=== PATIENT | male | born 1975 | race Two or more races ===

== ENCOUNTER 2019-01-02 11:31 | Emergency (ER) | payer MEDICAID ==
[~2019-01-02] VITALS: Ht 188 cm; Wt 84.4 kg
[2019-01-02 11:47] VITALS: BP 146/81; Ht 188 cm; Wt 84.4 kg
== END 2019-01-02 12:35 | disposition left against medical advice (07) ==
LOC: ED 11:31
DX: Z53.21 Procedure and treatment not carried out due to patient leaving prior to being seen by health care provider (principal)

== ENCOUNTER 2020-01-20 10:57 | Inpatient (IN) | payer OTHER ==
[~2020-01-20] VITALS: Ht 188 cm; Wt 105.2 kg
[2020-01-20 11:03] VITALS: Ht 188 cm; Wt 105.2 kg
--- NOTE | 2020-01-20 11:12 | NUR ---
PT BIB [facility], REPORT RECEIVED FROM MEDIC ART. PT STS THAT HE WAS EATING A TAMALE THIS MORNING AND BEGAN CHOKING ON IT. PT STS THAT WHEN HE SAT UP TO GET THE "FOOD OUT OF WIN[place]", HE FELT "PAIN THAT FEELS LIKE CONTRACTION" AND THE PAIN GOT WORSE HE TRIED HARDER TO GET THE FOOD OUT OF HIS WINDPIPE. PT STATED PAIN 4/10 WHEN HE ARRIVED WITH EMS BUT DENIES PAIN AT THIS TIME. PT ALSO DENIES N/V/D AT THIS TIME. PT STS THAT HE HAS NOT BEEN TAKING HIS BLOOD THINNER SINCE FEBRUARY BUT HAS TAKEN LASIX RECENTLY S/P TELLING HIS DR THAT HE HAS BEEN RETAINING FLUID. PER MEDIC, PT 140-170 AFIB ON SCENE AND HX CHF, HTN, AND HIGH CHOLESTEROL. PT IN [facility] RESTING RESP E/U, NAD NOTED, AAOX4, CALL LIGHT IN REACH. PT ALSO C/O "BLOOD BLISTERS" IN LOWER ABD REGION, B/L FA, AND BLE, STATING THAT "IT MAY BE FROM MY FLUID RETENTION".
--- NOTE | 2020-01-20 11:15 | NUR ---
AT BEDSIDE FOR MSE
--- NOTE | 2020-01-20 12:10 | NUR ---
INTERNSHIP CONVERTED FROM UNCONTROLLED A FIB TO SINUS TACH.
[2020-01-20 12:17] LABS: CALCIUM 8.7 mg/dL (8.5-10.1); CHLORIDE SERUM 104 mmol/L (98-107); CREATININE SERUM 1.2 mg/dL (0.7-1.3); GFR1 > 60 mL/min; GLUCOSE SERUM 114 mg/dL (74-106); POTASSIUM SERUM 3.8 mmol/L (3.5-5.1); SODIUM SERUM 138 mmol/L (136-145)
[2020-01-20 12:28] LABS: ALBUMIN 3.6 g/dL (3.4-5.0); ALKALINE PHOSPHATASE 111 U/L (46-116); ALT/SGPT 76 U/L (16-63); AST/SGOT 60 U/L (15-37); BILIRUBIN TOTAL 2.63 mg/dL (0.20-1.00); LIPASE 128 IU/L (73-393); MAGNESIUM 2.2 mg/dL (1.8-2.4); T4(THYROXINE) 7.7 ug/dL (4.7-13.3); TOTAL PROTEIN, SERUM 6.8 g/dL (6.4-8.2)
[2020-01-20 12:30] LABS: CHOLESTEROL 111 mg/dL (<200); HDL CHOLESTEROL 29 mg/dL (40-60)
[2020-01-20 12:31] LABS: BASOPHIL % 0.6 % (0-2); PLATELET COUNT 400 x10^3mcL (130-400); RED CELL DISTRIBUTION WIDTH 14.8 % (11.5-14.5)
[2020-01-20 13:00] LABS: microscopic required? NO
--- NOTE | 2020-01-20 13:24 | NUR ---
MANSOOR FIORE D/C PER DR. MATOS
--- NOTE | 2020-01-20 13:36 | NUR ---
PT IN BED RESTING, EASY TO AROUSE. AAOX4, RESP E/U, NAD NOTED, CALL LIGHT IN REACH
[2020-01-20 14:01] LABS: urine erythrocyte NEGATIVE (NEGATIVE)
[2020-01-20 14:14] LABS: AMPHETAMINE QUAL UR POSITIVE (See below)
[2020-01-20 14:51] VITALS: BP 133/98
[2020-01-20 15:02] LABS: CHOLESTEROL/HDL RATIO 3.9
--- NOTE | 2020-01-20 15:12 | NUR ---
RECEIVED PT FROM ER, PT ADMIT FOR NON Q ACUTE FL, PT IS A/O X4, VERBAL RESPONSIVE. LUNG SOUND CLEAR BILATERAL, NO COUGH, NO SOB. PT IS ON TELE A.FIB. DENY ANY CHEST PAIN OR DISCOMFORT, BOWEL SOUND PRESENT ALL 4 QUADRANTS, NO DISTENTION, NO TENDER. PEDAL PULSE PRESENT BOTH FEET, NO EDEMA, IV AT LEFT FA, NO LEAKING, NO INFILTRATION. ALL ADLS ASSIST, ALL NEED MET, CALL LIGHT IN REACH, WILL CONTINUE TO MONITOR.
--- NOTE | 2020-01-20 18:17 | NUR ---
NOTIFIED PATIENT THAT HE WILL HAVE A CT OF THE ABD & PELVIS. CT HAS YET TO CALL PERTAINING TO PLANNED DIAGNOSTIC PROCEDURE. OTEHRWISE PATIENT IS RESTING AT THIS TIME. WILL CONTINUE TO MONITOR PATIENT.
--- NOTE | 2020-01-20 19:24 | NUR ---
REPORT FROM RHIANNON KNOX. PATIENT RESTING, SNORING, EYES CLOSED. NO S/S OF DISTRESS OR DISCOMFORT. PATIENT BREATHING EVEN AND UNLALORED ON RA. CHEST RISE AND FALL. PATIENT IS AMBULATORY, LFA 20G INTACT. TELE [address] ST. ACTIVE BOWELS X4 SKIN CLEAR. STRONG RADIAL AND PEDAL PULSES. VOIDS FREELY IN THE URINAL. BED IN LOW POSITION, SIDE RAILS UPX2, CALL LIGHT WITHIN REACH. CALM AND COOPERATIVE WITH CARE.
[2020-01-20 21:01] VITALS: BP 111/70
--- NOTE | 2020-01-21 01:24 | NUR ---
PATIENT RESTING. EYES CLOSED. SNORING. NO S/S OF DISTRESS OR DISCOMFORT. PATIENT BREATHING EVEN AND UNLABORED ON RA. 99 SPO2. TELE 1 IN AND OUT OF AFIB. ST 112-120. WILL CONTINUE TO MONITOR PATIENT AND OFFER SUPPORT.
--- NOTE | 2020-01-21 03:19 | NUR ---
TROPONIN CAME BACK AT [address] KOEHLER, NO NEW ORDERS GIVEN. PATIENT RESTING, NO S/S OF DISTRESS OR DISCOMFORT. PATIENT DENIES PAIN AT THIS TIME. PT TACHY AT 120S. WILL CONTINUE TO MONITOR PATIENT AND OFFER SUPPORT.
[2020-01-21 05:32] VITALS: BP 140/96
--- NOTE | 2020-01-21 06:19 | NUR ---
PATIENT RESTING NO S/S OF DISTRESS OR DISCOMFORT. PATIENT BREATHING EVEN ON RA 99% SPO2. PATIENT TACHY 122S. DENIES CHEST PAIN AT THIS TIME. PATIENT GOING DOWN FOR CT AT THIS TIME.
--- NOTE | 2020-01-21 07:33 | NUR ---
RECEIVED PT FROM LINE INSTALLATION SUPERVISOR NURSE. TELE #1, ST, HR:120. PT SLEEPING, BREATHING EVEN/UNLABORED ON RA, IN NO ACUTE RESP DISTRESS AT THIS TIME. PULSES PALP, TRACE EDEMA NOTED. PT VOIDS PER BRP. GEN WEAKNESS NOTED, AMBULATORY. SKIN INTACT. PT IN NO APPARENT PAIN AT THIS TIME. IV TO LFA PATENT, SL, CDI. WILL CONT TO MONITOR.
[2020-01-21 08:25] VITALS: BP 146/110
--- NOTE | 2020-01-21 09:17 | NUR ---
TOLD SIMBA PERFORMING ECHO THAT PT'S EF WAS ABOUT 15%, SHE STATED THAT WOULD LET DR. LÓPEZ KNOW TO READ ECHO RESULTS VU AFTER ECHO COMPLETED. LET COSMO TELEVISION PARTS TESTER KNOW ABOUT EF OF 15%, NO CHANGE IN ORDERS. WILL CONT TO MONITOR.
--- NOTE | 2020-01-21 11:33 | NUR ---
TOPSTITCHER ZIGZAG CALLED, STATED THAT PT'S HR WAS IN THE 170S. SPOKE ZELDA WILBURN AGRONOMY INSTRUCTOR, COSMO INPUTTING ORDERS WHEN PT'S HR SPIKED TO 230. RAPID RESPONSE CALLED AT 1040. PT FOUND AAO X4, RESTING IN BED, EATING SANDWICH. PT REPORTED FEELING NO CHEST PAIN, BUT DOES HAVE TINGLING FEELINGS IN HIS HEAD AND LIGHTHEADEDNESS. VS: T: 97.8, HR: 157, BP: 126/87, RR: 24, 02: 94. PT PUT ON 3LNC, PLACED ON MONITOR. BS WAS 179. COSMO AT BEDSIDE, MESSAGING DR. LÓPEZ TO CONFIRM ORDERS. DIGOXIN 0.125 MG GIVEN IVP, ONCE. EKG TAKEN AT BEDSIDE, PER DR. LÓPEZ, PT WAS IN A FLUTTER. TROPONIN LAB REDRAWN. RAPID RESPONSE ENDED AT 1050. CHARGE NURSE VIJAYA AT BEDSIDE, AWARE OF SITUATION. PT GIVEN METOPROLOL PER EMAR. PT CURRENTLY SLEEPING, BREATHING EVEN/UNLABORED ON 3 L NC. HR: 128. WILL CONT TO MONITOR.
[2020-01-21 12:04] VITALS: BP 138/99
[2020-01-21 12:26] VITALS: BP 110/85
--- NOTE | 2020-01-21 13:58 | NUR ---
PT SITTING UP IN BED AAO X4, FATIGUED BUT EASILY AROUASBLE. SINUS TACHY, HR: 127, BP: 113/67. BREATHING EVEN/UNLABORED, SNORING WHEN SLEEPING. PT REPORTS NO PAIN/LIGHTHEADEDNESS AT THIS TIME. WILL CONT TO MONITOR.
--- NOTE | 2020-01-21 15:19 | NUR ---
DR. LÓPEZ REQUESTING RELEASE OF MEDICAL RECORDS FROM [facility]. PT STAYED THERE IN 2019. PT SIGNED CONSENT FOR RELEASE OF MEDICAL DISCLOSURE, PLACED IN CHART. FAXED OVER CONSENT TO [facility] MEDICAL RECORDS, AWAITING RESPONSE.
[2020-01-21 16:46] VITALS: BP 92/61
--- NOTE | 2020-01-21 18:58 | NUR ---
PT SLEEPING ON R SIDE, EASILY AROUSABLE.BREATHING EVEN/UNLABORED ON RA. TELE #1, ST, HR: 118. PT REPORTS THAT HIS HEADAHCE IS SLIGHTLY BETTER NOW. IV TO LFA PATENT, SL, CDI. ALL NEEDS MET. WILL ENDORSE TO NIGHT SHFIT NURSE.
[2020-01-21 19:05] VITALS: BP 135/66
--- NOTE | 2020-01-21 21:12 | NUR ---
UPON INITIAL SHIFT ASSESSMENT PT RESTING IN BED WITH SOME SOB. PT WAS OFF NC AND WAS TEHN PUT BACK ON NC WITH 3L AND SOB SUBSIDED AND WENT BACK TO RESTING. PT VITALS HR 112, BP 135/66, 0/10 PAIN, 18 RR, 99.2 TEMP. PT LUNG SOUNDS CLEAR WITH DIMINISHED BASES BILATERALLY. NO SOB AFTER BEING PUT BACK ON NC 3L WIT 02 96%. S1 AND S2 HEARD UPON ASUCULTATION. DENIES CHEST PAIN AT THIS TIME. BOWEL SOUNDS NORMOACTIVE 4X QUARDRANTS. PT USED BATHROOM AND IS AMBULATORY. PULSES STRONG IN ALL EXTREMITIES WITH GOOD STRENGTH AND SENSATION. DURING DAY SHIFT RAPID WAS CALLED ON PT FOR HR. WILL CONTINUE TO MONITOR PT THROUGHOUT SHIFT.
--- NOTE | 2020-01-21 22:01 | NUR ---
I HAVE REVIEWED THE DATA COLLECTION BY RHIANNON JOHNSON ENTERED ON (DATE/TIME):01/21/2020 7P-7A I CONCUR WITH THE DATA AND ANY EXCEPTIONS OR COMMENTS ARE LISTED BELOW:
--- NOTE | 2020-01-22 02:10 | NUR ---
PT COMPLAINING OF THROBBING HEADACHE AT 0106. TOOK BP AND IT WAS 127/60. GAVE PT PRN TYLENOL. REASSESSED AND PT WAS ASLEEP IN ROOM.
--- NOTE | 2020-01-22 04:51 | NUR ---
PT SLEPT WELL THROUGH THE NIGHT. WOKE UP AROUND 2 AM COMPLAINING OF HEADACHE. GIVEN PRN TYENOL AND PT WAS REASSESSED WITH NO PAIN AND SLEEPING SOUNDLY. PTS RHYTHM STAYED IN A FLUTTER THROUGH THE NIGHT WITH HR 100-120 AND OCCASIONAL PVC. WILL SHARE INFORMATION WITH ONCOMING NURSE AND WILL CONTINUE TO MONITOR.
[2020-01-22 05:48] VITALS: BP 104/68
--- NOTE | 2020-01-22 07:21 | NUR ---
RECEIVED PT FROM SLATE CUTTER NURSE. TELE #1, TACHY CARDIC, AFLUTTER WITH PVC. HR:120. PT SLEEPING, EASILY AROUSABLE. AAOX4, BREATHING EVEN/UNLABORED ON RA. DENIES CHEST PAIN/DIZZINESS. 500ML DARK YELLOW URINE NOTED TO URINAL THIS AM. PT REPORTS NO PAIN AT THIS TIME. IV TO LFA PATENT, CDI, SL. ALL NEEDS MET. WILL CONT TO MONITOR.
[2020-01-22 07:34] LABS: CALCIUM 8.8 mg/dL (8.5-10.1); CARBON DIOXIDE 23.4 mmol/L (21-32); CHLORIDE SERUM 102 mmol/L (98-107); CREATININE SERUM 1.3 mg/dL (0.7-1.3); GFR1 > 60 mL/min; GLUCOSE SERUM 126 mg/dL (74-106); SODIUM SERUM 138 mmol/L (136-145)
[2020-01-22 08:36] LABS: PLATELET COUNT 373 x10^3mcL (130-400); RED CELL DISTRIBUTION WIDTH 14.2 % (11.5-14.5)
[2020-01-22 08:45] LABS: BASOPHIL % 2.6 % (0-2)
[2020-01-22 09:18] VITALS: BP 93/63
[2020-01-22 11:28] VITALS: BP 107/64
--- NOTE | 2020-01-22 11:47 | NUR ---
PT RESTING IN L SIDE, SLEEPING, EASILY AROUSABLE TO VOICE. BREATHING EVEN/UNLABORED, SNORING, ON RA. IN NO ACUTE RESP DISTRESS. PT STATES THAT HE "IS DOING OKAY" AND DENIES ANY PAIN. ALL NEEDS MET. WILL CONT TO MONITOR.
[2020-01-22 16:19] VITALS: BP 130/83
--- NOTE | 2020-01-22 18:20 | NUR ---
PT LAYING IN BED ON L SIDE, ON PHONE. AAOX4, TELE # 1, TACHY HR: 120, A FLUTTER. BREATHING EVEN/UNLABORED ON RA. PT REPORTS NO PAIN/DIZZINESS AT THIS TIME. IV TO LFA PATENT, SL, CDI. ALL NEEDS MET. WILL CONT TO MONITOR.
[2020-01-22 19:15] VITALS: BP 135/95
--- NOTE | 2020-01-22 21:07 | NUR ---
PT PRESENTS SLEEPING IN BED. DENIES PAIN AT THIS TIME. VITALS 126 HR, 135/95 BP, 18 RR, RA 02 98%, 99.3 TEMP. LUNG SOUNDS CLEAR WITH NO SOB OR DISTRESS. S1 AND S2 HEARD. TELE 1 WITH AFLUTTER. DENIES CHEST PAIN AT THIS TIME. ABD SOFT WITH NORMOACTIVE BOWEL SOUNDS. USES BEDSIDE URINAL WITH NO COMPLAINTS OF BURNING. ABLE TO MOVE INDEPENDENTLY AND AMBUALTES TO BATHROOM. WILL CONTINUE TO MONITOR.
--- NOTE | 2020-01-22 21:51 | NUR ---
I HAVE REVIEWED THE DATA COLLECTION BY RHIANNON JOHNSON ENTERED ON (DATE/TIME):01/22/2020 I CONCUR WITH THE DATA AND ANY EXCEPTIONS OR COMMENTS ARE LISTED BELOW:
--- NOTE | 2020-01-22 23:27 | NUR ---
PT VITALS 103/74 BP. HELD NITRO PATCH DUE TO PARAMETERS. WILL CONTINUE TO MONITOR.
--- NOTE | 2020-01-23 04:43 | NUR ---
PT SLEPT WELL THROUGHOUT THE NIGHT. PT HR STAYED IN 120'S THROUGH THE NIGHT BETWEEN AFLUTTER AND ST. PT DENIED PAIN OR SOB. PT STAYED ON RA THROUGHOUT THE NIGHT. PT GOT INTO ARGUMENTS A FEW TIMES OVER THE PHONE WITH FAMILY BUT OVERALL SLEPT WELL. WILL CONTINUE TO MONITOR PATIENT AT THIS TIME AND SHARE INFORMATION WITH ONCOMING NURSE.
[2020-01-23 05:43] VITALS: BP 139/93
--- NOTE | 2020-01-23 05:45 | NUR ---
PT VITALS FOR HEART MEDICATIONS WERE BP 139/93 AND HR 120. GAVE NITROL PATCH WELL METOPROLO. PT TOLERATED WELL. PT MENTIONED THAT THE NITROL PATCH HAS GIVEN HIM HEADACHES IN THE PAST, WILL MONITOR AND ADDRESS NEEDED. WILL ALSO SHARE WITH ONCOMING NURSE.
--- NOTE | 2020-01-23 07:17 | NUR ---
RECEIVED PT FROM CEDRICK LOZANO NURSE. TELE #1, TACHY, AFLUTTER WITH PVC. AAO X4, SITTING UP IN BED. BREATHING EVEN/UNLABORED ON RA. PT COMPLAINS OF HEADACHE, ALREADY MEDICATED WITH TYLENOL PER EMAR. IV TO LFA PATENT, CDI. WILL CONT TO MONITOR.
[2020-01-23 08:13] VITALS: BP 102/60
--- NOTE | 2020-01-23 13:32 | NUR ---
PT SLEEPING SUPINE, BREATHING EVEN/UNLABORED ON RA. HR: 124, A FLUTTER. PT REPORTS NO PAIN AT THIS TIME. NOTIFIED COSMO PROPERTY MAINTENANCE SUPERVISOR REGARDING PT'S HEADACHES WITH NITRO TOPICAL OINT BUT PT STATING HE IS OKAY TAKING IT LONG HE GETS PAIN MEDICATION AFTERWARDS. IV TO LFA PATENT, CDI. ALL NEEDS MET, WILL CONT TO MONITOR.
--- NOTE | 2020-01-23 14:15 | NUR ---
SPOKE WITH DR. LIRA ON THE PHONE. PER DR. LIRA, PT WILL HAVE CARDIAC ABLATINO FOR A FLUTTER TOMOROW 01/24/20 AT 1100, INPUT ORDERS FOR NPO AT MIDNIGHT, TRANSESOPHAGEAL ECHOCARDIOGRAM, AND OBTAIN CONSENT FOR ABLATION FOR ATRIAL FLUTTER. WILL INPUT ORDERS ACCORDINGLY.
--- NOTE | 2020-01-23 16:25 | NUR ---
PT COMPLAINNG OF A HEADACHE, 10/03. PT REQUESTING MORPHINE SINCE IT WORKS WELL FOR HIS LAST NITRO-INDUCED HEADACHE, BUT PT'S BP WAS TOO LOW 91/55, TO GIVE MORPHINE AT THIS TIME. PT VERABLIZED UNDERSTANDING AND STATED THAT HE WAS OKAY WITH A TYLENOL. WILL REASSESS PAIN AND CONTINUE TO MONITOR.
[2020-01-23 16:54] VITALS: BP 91/55
--- NOTE | 2020-01-23 18:35 | NUR ---
PT RESTING IN BED ON L SIDE, AAOX4, TELE #1, TACHY HR: 123, A FLUTTER. BREATHING EVEN/UNLABORED ON RA. PT REPORTS NO PAIN AT THIS TIME. IV TO LFA PATENT, SL, CDI. ALL NEEDS MET. WILL ENDORSE TO INDUSTRIAL DESIGN INTERN NURSE.
[2020-01-23 19:05] VITALS: BP 98/52
[2020-01-23 21:09] VITALS: BP 99/61
--- NOTE | 2020-01-23 21:55 | NUR ---
COMING ONTO SHIFT PT COMPLAINING OF 10/10 HEADAHCE DUE TO NITRO PATCH. PT GIVEN MORPHINE IVP PRN. PT ALERT AND ORIENTED X4. DENIES CHEST PAIN AT THIS TIME. PT LUNG SOUNDS CLEAR TO AUSCULTATION, NO SOB, ON RA, NO ACUTE DISTRESS. S1 AND S2 HEARD. TELE 1 WITH A FLUTTER/SINUS TACH IN 120'S. ABD SOFT AND NONTENDER, BOWEL SOUNDS ACTIVE. LFA IV PATENT AND SALINE LOCKED. PT AMBULATROY AND INDEPENDENT IN BED. UPON REASSESSMENT OF MORPHINE, PT ASLEEP. WILL CONTINUE TO MONTIOR AT THIS TIME.
--- NOTE | 2020-01-24 04:39 | NUR ---
PT SLEPT WELL THROUGHOUT THE NIGHT. NO FURTHER COMPLAINTS OF HEADACHE. PT SCHEDULED FOR 1100 PROCEDURE FOR CARDIAC ABLATION. NPO SINCE MIDNIGHT. PT AFLUTTER WITH PVC AND BBB ON TELE. HR IN 120'S OVERNIGHT. PT DENIES PAIN AT THIS TIME. WILL CONTINUE TO MONITOR AND SHARE WITH ONCOMING RN.
[2020-01-24 05:37] VITALS: BP 124/69
--- NOTE | 2020-01-24 08:00 | NUR ---
PATIENT RECEIVED AWAKE AND A LITTLE ANXIOUS. HE HAS BEEN NPO FOR PROCEDURE AND HAS BEEN WITHOUT NITRO PASTE OVERNIGHT DUE TO HIS LOW BP AND A VERY BAD HEADACHE FORM THE MEDICATION. PATIENT HAS SIGNED CONSENT FOR THE PROCEDURE AND HAS BEEN EXPLAINED THE PROCEDURE BY THE STAFF AND THE DOCTOR. PATIENT HAS NOTED POOR HYGENE AND ENCOURAGED TO GET UP AND WASH UP AND THEN STAFF WILL DO THE CHERELLE WELL TO PREPARE FOR THE ABLATION. PATIENT HAS BEEN OFFERED ITEMS FOR CLEANING HIMSELF AND THAT THE CHERELLE WASH POST THIS FOR READUYING FOR THE PROCEDURE PATIENT HAS BEEN ON 02 AT 2 LITERS VIA NASAL CANNULA AND ITEMS FOR CLEAN UP. WILL MONITOR INDICATED. VITALS AT THIS TIME AT 97.7, 60, 18, 114/70, 93%. NOTED LAB AR E THE BUN AT 23. AND THE AIC AT 6.4.
[2020-01-24 08:22] VITALS: BP 114/70
--- NOTE | 2020-01-24 10:59 | NUR ---
PATIENT DOWN FOR PROCEDURE. PATIENT HAD BEEN HAVEING SOME SOB AND THIS SDURING HIS CLEANING HIMSEL UP. BACK IN BED HIS HEARTRATE SLOWED AGAIN AND HE IS WITH ON AND NOW SOB SUBSIDED. TELE AT THE MONITOR STATION AND AWAITING RESULTS OF THE TEST.
--- NOTE | 2020-01-24 13:58 | NUR ---
RECEIVED REPORT FROM THE OR AND PATIENT IS TO RETURN TO THE FLOOR. NO BED AVAILABLE IN THE ICU AT THIS TIME. HE HAS HAD BILATERAL GROIN DRESSINGS AND TO LIE FLAT FOR TWO HOURS. PATIENT HAS BEEN HAVING PACS AND THIS PER THE CARDIAC DIESEL TRUCK DRIVER SHOULD BE RESOLVED POST ABLATION IN TIME. HE HAS STILL EJECTION FRACTION OF 10%. HE HAS BEEN SATURATING WELL AND HE IS STABLE TO RETURN TO THE FLOOR. PLAN OF CARE IS PENDING POST PROCEDURE. NO DISCHARGE PLAN YET NOTED.
[2020-01-24 14:19] VITALS: BP 104/74
--- NOTE | 2020-01-24 15:16 | NUR ---
TOLERATED FOOD AND REMINDED ABOUT THE LYING FLAT FOR NOW. NO ACTIVE BLEEDING NTOED.
--- NOTE | 2020-01-24 16:23 | NUR ---
PATIENT COMPLAINED OF FEELIGN AIR POCKET TO EH CHEST AND HAS BEEN LAYING THERE BUZZING VERBALLY AND WHEN ASKED WHAT HE IS DOING HE STATS IT SOOTHS HIM. PATIENT IS ANXIOUS BUT DOES NOT APPEAR IN ANY ACUTE DISTRESS. DR LIRA IS AWARE OF THE COMPLAINT. PATIENT TO RECEIVE HIS MEDICATIONS ORDERED.
[2020-01-24 17:04] VITALS: BP 114/66
--- NOTE | 2020-01-24 18:10 | NUR ---
TOLERATE DOOB WELL AND NO ACTIVE BLEEDING NOTED. PATIENT TOLERATED DIET AND FLUIDS. NO CHEST PAIN AT THIS TIME.
--- NOTE | 2020-01-24 19:25 | NUR ---
RECEIVED PT IN BED ASLEEP BUT EASILY AROUSABLE. PT IS ALERT,ORIENTED X4. NO SOB AT THIS TIME WHILE HE IS AT REST. HE HAS NO C/O CHEST PAIN. RT AND LT GROIN W/ CLEAR DRESSING INTACT. SMALL AMOUNT OF BLOOD STAIN NOTED ON RT GROIN BUT NO ACTIVE BLEEDING NOTED. W/ HL TO LTFA AND RT HAND. CALL LIGHT W/IN REACH.
[2020-01-24 20:56] VITALS: BP 131/64
[2020-01-25 00:10] VITALS: BP 120/66
--- NOTE | 2020-01-25 00:12 | NUR ---
PT REFUSED NITROL PATCH SAYING IT GIVES HIM HEADACHE. FX=900/66 HR=60. PT W/ NO C/O CHEST DISCOMFORT.
--- NOTE | 2020-01-25 02:14 | NUR ---
PT APPEARS TO BE SLEEPING COMFORTABLY ON HIS RT SIDE.
--- NOTE | 2020-01-25 02:49 | NUR ---
PT C/O HEADACHE 08/03. TYLENOL 650 MG PO GIVEN.
[2020-01-25 04:59] VITALS: BP 127/77
--- NOTE | 2020-01-25 05:02 | NUR ---
PT SLEPT IN LONG INTERVALS. HE WAS MEDICATED FOR HEADACHE X1. HE HAD NO C/O CHEST PAIN. PT AMBULATES W/ STEADY GAIT. PT REMAINS ON ROOM AIR. ALL NEEDS ATTENDED TO.
--- NOTE | 2020-01-25 07:30 | NUR ---
RECEIVED PT FROM ITZ JURADO. PT IS AAOX4. PT ON TELE #2. PT DENIES CHEST PAIN AT THIS TIME. PT ON RA, NO SOB OR DISTRESS AT THIS TIME. IV TO LFA/RH, HEPLOCKED, CDI, AND PATENT. PT DENIES PAIN OR DISCOMFORT AT THIS TIME. ALL SAFETY AND COMFORT MEASURES IN PLACE. BED IN LOW POSITION, 2 SIDE RAILS UP, CALL LIGHT WITH IN REACH. ALL QUESTIONS AND CONCERNS ADDRESSED. ALL NEEDS MET AT THIS TIME. WILL CONTINUE TO MONITOR PT.
[2020-01-25 07:56] LABS: CALCIUM 8.8 mg/dL (8.5-10.1); CARBON DIOXIDE 27.3 mmol/L (21-32); CHLORIDE SERUM 101 mmol/L (98-107); CREATININE SERUM 1.1 mg/dL (0.7-1.3); GFR1 > 60 mL/min; GLUCOSE SERUM 84 mg/dL (74-106); POTASSIUM SERUM 4.2 mmol/L (3.5-5.1); SODIUM SERUM 137 mmol/L (136-145)
[2020-01-25 09:03] VITALS: BP 134/62
[2020-01-25 09:14] LABS: BASOPHIL % 0.1 % (0-2); PLATELET COUNT 359 x10^3mcL (130-400)
--- NOTE | 2020-01-25 09:50 | NUR ---
PHAM WILBURN MADE AWARE OF PT'S WBC 14.3. ALL QUESTIONS AND CONCERNS ADDRESSED. WILL CONTINUE TO MONITOR PT.
[2020-01-25 12:04] VITALS: BP 98/61
--- NOTE | 2020-01-25 12:07 | NUR ---
SPOKE TO PT'S GIRLFRIEND RICK. PER PT, OKAY TO GIVE INFORMATION AND UPDATE GHER ON POC. ALL QUESTIONS AND CONCERNS ADDRESSED. ALL NEEDS MET AT THIS TIME. WILL CONTINUE TO MONITOR PT.
--- NOTE | 2020-01-25 12:50 | NUR ---
DR LIRA MADE AWARE OF PT RUNNING AFIB. ALL QUESTIONS AND CONCERNS ADDRESSED. WILL CONTINUE TO MONITOR PT.
--- NOTE | 2020-01-25 13:25 | NUR ---
IN TO SEE PT. PT REMAINS STABLE AT THIS TIME W/ NO ACUTE CHANGES TO STATUS. ALL QUESTIONS AND CONCERNS ADDRESSED. WILL CONTINUE TO MONITOR PT.
[2020-01-25 16:14] VITALS: BP 115/83
[2020-01-25] MEDS ORDERED: ELIQUIS5 MG PO (16:28)
[2020-01-25] MEDS ORDERED: COR6 PO (16:28)
[2020-01-25] MEDS ORDERED: D25 PO (16:28)
[2020-01-25] MEDS ORDERED: L40 PO (16:29)
[2020-01-25] MEDS ORDERED: ZES5 PO (16:29)
[2020-01-25] MEDS ORDERED: LASIX20 MG PO (16:37)
[2020-01-25 16:41] VITALS: BP 115/83
--- NOTE | 2020-01-25 17:01 | NUR ---
PT GIVEN D/C INSTRUCTIONS. PT REMAINS STABLE AT THIS TIME FOR D/C. PT VERBALIZES UNDERSTANDING OF D/C INSTRUCTIONS. IV D/C, ID BANDS REMOVED. TELE MONITOR REMOVED AND RETURNED TO TELE STATION. ALL QUESTIONS AND CONCERNS ADDRESSED. ALL NEEDS MET AT THIS TIME. PT STATED HIS GIRLFRIEND RICK WILL BE PICKING HIM UP. AWAITING RIDE.
--- NOTE | 2020-01-25 17:20 | NUR ---
PT D/C IN STABLE CONDITION. ALL BELONGINGS SENT W/ PT. PT ACCOMPANIED TO MAIN LOBBY BY MACHINE I COREMAKER. ALL QUESTIONS AND CONCERNS ADDRESSED.
== END 2020-01-25 17:26 | disposition home or self-care (01) | DRG 175 ==
LOC: ED 10:57 → DU 13:52
PROVIDERS: Emergency Medicine; Specialist; ADMIT Family Medicine; ATTEND Family Medicine
PROC: 02583ZZ Destruction of Conduction Mechanism, Percutaneous Approach (ICD-10-PCS; principal; 2020-01-24 11:00)
PROC: 02K83ZZ Map Conduction Mechanism, Percutaneous Approach (ICD-10-PCS; 2020-01-24 11:00)
DX: I48.92 Unspecified atrial flutter (principal); I21.A1 Myocardial infarction type 2; I50.43 Acute on chronic combined systolic (congestive) and diastolic (congestive) heart failure; I11.0 Hypertensive heart disease with heart failure; I42.8 Other cardiomyopathies; I48.20 Chronic atrial fibrillation, unspecified; F17.210 Nicotine dependence, cigarettes, uncomplicated; J98.11 Atelectasis; F15.10 Other stimulant abuse, uncomplicated; Z20.828 Contact with and (suspected) exposure to other viral communicable diseases
CPT/HCPCS: 82962; 90658; 90732; 99406; C1730; C1894; C2630; C9113; G0378; J1160; J1644; J1650; J1885; J1940; J2175; J2270; J3010; J3490; J7030; Q9967